=== PATIENT | male | born 1965 | race Caucasian/White ===

== ENCOUNTER 2019-11-19 10:51 | Emergency (ER) | payer SELFPAY ==
[~2019-11-19] VITALS: Ht 180.3 cm; Wt 79.0 kg
[2019-11-19 11:03] VITALS: BP 142/88
--- NOTE | 2019-11-19 11:51 | NUR ---
D/C INSTRUCTIONS, MEDS & F/U APPT PROVIDED TO PT. RX GIVEN X2. CARE CHEST INFO PROVIDED TO PT. COMMUNITY RESOURCE LISTS PROVIDED TO PT INCLUDING COMMUNITY CLINICS & OUTPATIENT PSYCH RESOURCES. PT CALM, VERBALIZES UNDERSTANDING. DIRECTIONS TO SERGEI RX PROVIDED TO PT. PT AMBULATED OUT OF ED WITHOUT DIFFICULTY.
== END 2019-11-19 11:52 | disposition home or self-care (01) ==
LOC: ED 11:14
DX: F25.9 Schizoaffective disorder, unspecified (principal); Z76.0 Encounter for issue of repeat prescription
CPT/HCPCS: 99281